=== PATIENT | female | born 1985 | race Caucasian/White ===

== ENCOUNTER 2017-02-12 10:18 | Emergency (ER) | payer SELFPAY ==
[2017-02-12 10:46] VITALS: BP 115/80
--- OUTSIDE RECORDS SUMMARY | 2017-02-12 11:13 | XMS REPORT | Continuity of Care Document ---
:1985 Author Organization [facility] ([facility]) Address [address] [place] [address] Phone [phone] Support Name Relationship Address Phone Unavailable Unavailable [address] [phone] [place] [address] Unavailable Unavailable [address] [place] [address] Care Team Providers Name Role Phone Unavailable Primary Care Provider Unavailable Source Comments This disclosure is being made pursuant to the Care Everywhere program, applicable federal and state laws, and may not contain all informaitonavailable regarding this patient.[facility] ([facility]) Active Allergies and Adverse Reactions Not on File Current Medications Not on file Active Problems Not on file Immunizations Name Dates Previously Given Next Due Hib, unspecified 12/23/1997 Pneumococcal, unspecified 03/14/1997 Social History Tobacco Use Types Packs/Day Years Used Date Never Assessed Plan of Care Health Maintenance Due Date Last Done Comments Hepatitis B Vaccine (1 of 3 - Primary Series) 1985 Tdap Vaccine 1996 Lipid Disorder Screening 2003 MMR Vaccine 2003 Td Vaccine 2003 Varicella Vaccine (1 of 2 - Adult - No Evidence of 2003 Immunity) Cervical Cancer Screening 2015 Influenza Vaccine: Seasonal (#1) 06/07/2016 Results from Last 3 Months Not on file
--- NOTE | 2017-02-12 11:17 | ERNOTE ---
ENT HPI Date of Service: 02/12/17 Presenting Symptoms: dental pain Time Seen by Provider: 02/12/17 11:05 Source: patient Exam Limitations: no limitations - Immun/Allergies/Home Medications Immunizations: IMMUNIZATION HX Immunizations Up to Date Yes History of Influenza Vaccine Yes Hx Pneumococcal Vaccination No Allergies/Adverse Reactions: Allergies Allergy/AdvReac Type Severity Reaction Status Date / Time Penicillins Allergy Verified 02/12/17 10:47 Home Medications: HOME MEDICATIONS metFORMIN HCL [Glucophage] 500 mg PO BIDWM 01/04/16 [Last Taken Unknown] Clindamycin HCl [Cleocin] 150 mg PO QID #56 capsule 02/12/17 [Last Taken Unknown ] Naproxen 500 mg PO BID PRN #28 tablet. 02/12/17 [Last Taken Unknown] - History of Present Illness Narrative: Dental pain front and on left side for 2 days, now moving up into the left side of face. Has dental appt in 2 days. no fever, chills, or sweats. left work today due to the severity of the pain. Severity: Present: moderate ENT Location: Present: dental Prearrival Treatment: Present: over the counter meds Modifying Factors - Improves: Reports: nothing Modifying Factors - Worsens: Reports: heat, cold, other - touching it Associated Symptoms - ENT: Reports: denies symptoms Prior Treament: Reports: similar symptoms before. Denies: currently on antibiotics Review of Systems - Review of Systems Constitutional: Present: no symptoms reported EYE: Present: no symptoms reported ENT: Present: See HPI Respiratory: Present: no symptoms reported Cardiology: Present: no symptoms reported Gastrointestinal/Abdominal: Present: no symptoms reported Genitourinary: Present: no symptoms reported Musculoskeletal: Present: no symptoms reported Skin: Present: no symptoms reported Neurological: Present: no symptoms reported Endocrine: Present: no symptoms reported Hematologic/Lymphatic: Present: no symptoms reported Psych: Present: no symptoms reported All Other Systems: All systems neg except as marked - Patient's Past Medical History Patient History - Medical: Diabetes Type 2 Patient History - Cardiac/Respiratory: No pertinent hx Patient History - Cancer: No Hx of Cancer Patient History - Surgical Procedures: Appendectomy, Cholecystectomy, T & A, Other Patient History - Other: None LMP (Calendar): 02/02/16 - Social History Living Situations: home Abuse History: No History of abuse Psych History: No pertinent hx Smoking Status: Current every day smoker Have you smoked in the past 12 months: Yes Do you dip or chew tobacco: No Alcohol Use: none Drug Use: none - Immunizations Immunizations Up to Date: Yes Hx Pneumococcal Vaccination: No History of Influenza Vaccine: Yes Physical Exam - Physical Exam General Appearance: Present: wd/wn, alert, no apparent distress Eye Exam: Normal inspection: bilateral, PERRL: bilateral, EOMI: bilateral Ears, Nose, Throat: Present: normal ENT inspection Neck: Present: normal inspection Respiratory: Present: no respiratory distress, normal breath sounds Cardiovascular/Chest: Present: regular rate, rhythm, no murmur Extremity Exam: Present: normal inspection, no edema Neurological Exam: Present: alert, oriented, normal mood/affect Skin Exam: Present: normal color, warm/dry ED Progress - Vital Signs Patient's Vital Signs:: I have reviewed the patient's vital signs. Vital Signs: Vital Signs 02/12/17 10:34 Temperature 36.7 C Pulse Rate 75 Respiratory 18 Rate Blood Pressure 115/80 O2 Sat by Pulse 98 Oximetry - Progress/Reassessment Chief Complaint: Dental Problem Departure Clinical Impression: Dental abscess - Departure Disposition: Home self-care Condition: Good Instructions: Dental Abscess, [id number], Form - Excuse from Work, School, or Physical Activity Additional Instructions: Followup with your dentist in 2 days. Prescriptions: Clindamycin HCl [Cleocin] 150 mg PO QID #56 capsule Naproxen 500 mg PO BID PRN #28 tablet.dr CHENG Reason: pain
== END 2017-02-12 11:30 | disposition home or self-care (01) ==
LOC: ER 10:18
DX: K04.7 Periapical abscess without sinus (principal); Z72.0 Tobacco use; E11.9 Type 2 diabetes mellitus without complications

== ENCOUNTER 2017-04-09 13:24 | Emergency (ER) | payer SELFPAY ==
--- OUTSIDE RECORDS SUMMARY | 2017-04-09 13:56 | XMS REPORT | Continuity of Care Document ---
:1985 Author Organization [facility] ([facility]) Address [address] [place] [address] Phone [phone] Support Name Relationship Address Phone Unavailable Unavailable [address] [phone] [place] [address] Unavailable Unavailable [address] [place] [address] Care Team Providers Name Role Phone Unavailable Primary Care Provider Unavailable Source Comments This disclosure is being made pursuant to the Care Everywhere program, applicable federal and state laws, and may not contain all informaitonavailable regarding this patient.[facility] ([facility]) Active Allergies and Adverse Reactions Not on [...]
[2017-04-09] MEDS ORDERED: MAG HYDROX/ALUMINUM HYD/SIMETH 30 ML UDC PO ONE (14:05)
[2017-04-09] MEDS ORDERED: SUCRALFATE 1 G/10 ML UDC PO ONE (14:05)
[2017-04-09] MEDS ORDERED: LIDOCAINE HCL 20 ML UDC PO ONE (14:05)
--- NOTE | 2017-04-09 14:35 | ERNOTE ---
Medical Problem HPI - Narrative Date of Service: 04/09/17 - General Chief Complaint: General Assessment Time Seen by Provider: 04/09/17 13:49 Source: patient Exam Limitations: no limitations - Immun/Allergies/Home Medications Immunizations: IMMUNIZATION HX Immunizations Up to Date Yes History of Influenza Vaccine Yes Hx Pneumococcal Vaccination No Allergies/Adverse Reactions: Allergies Penicillins Allergy (Verified 04/09/17 13:34) Home Medications: HOME MEDICATIONS metFORMIN HCL [Glucophage] 500 mg PO BIDWM 01/04/16 [Last Taken Unknown] Clarithromycin 500 mg PO BID #28 tablet 04/09/17 [Last Taken Unknown] Lansoprazole [Prevacid] 15 mg PO BID #28 capsule. 04/09/17 [Last Taken Unknown ] - History of Present History Narrative: Pt. comes in with c/o acid reflux and not being able to hold foods down for a week. Pt. states that two months ago she stated to feel burning in her mid chest that radiates to her throat and then she developed the vomiting as the burning worsened and the past 24 hours she has felt nauseated, dizzy, and weak. Review of Systems - Review of Systems Constitutional: Present: weakness, fatigue, malaise. Absent: recent illness, fever, chills EYE: Present: no symptoms reported ENT: Present: no symptoms reported Respiratory: Present: no symptoms reported. Absent: shortness of breath, cough , wheezing Cardiology: Present: no symptoms reported. Absent: chest pain, palpitations, edema Gastrointestinal/Abdominal: Present: nausea, vomiting, other - GERD. Absent: abdominal pain Genitourinary: Present: no symptoms reported Musculoskeletal: Present: no symptoms reported. Absent: back pain, joint pain Skin: Present: no symptoms reported Neurological: Present: dizziness/light-headedness. Absent: headache, numbness, tingling All Other Systems: All systems neg except as marked - Patient's Past Medical History Patient History - Medical: Diabetes Type 2 Patient History - Cardiac/Respiratory: No pertinent hx Patient History - Cancer: No Hx of Cancer Patient History - Surgical Procedures: Appendectomy, Cholecystectomy, T & A, Other Patient History - Other: None LMP (Calendar): 02/02/16 - Social History Living Situations: home Abuse History: No History of abuse Psych History: No pertinent hx Smoking Status: Current every day smoker Have you smoked in the past 12 months: Yes Alcohol Use: none Drug Use: none - Immunizations Immunizations Up to Date: Yes Hx Pneumococcal Vaccination: No History of Influenza Vaccine: Yes Physical Exam - Physical Exam General Appearance: Present: wd/wn, alert, no apparent distress Eye Exam: Normal inspection: bilateral, PERRL: bilateral, EOMI: bilateral Ears, Nose, Throat: Present: normal ENT inspection, normal pharynx Neck: Present: normal inspection, nontender. Absent: lymphadenopathy (R), lymphadenopathy (L) Respiratory: Present: no respiratory distress, normal breath sounds, no accessory muscle use, chest nontender, lungs clear Cardiovascular/Chest: Present: regular rate, rhythm, no murmur, normal peripheral pulses Gastrointestinal/Abdominal: Present: normal bowel sounds, nontender, nondistended, soft, no organomegaly Back Exam: Present: normal inspection, normal range of motion, no CVA tenderness , no vertebral tenderness Extremity Exam: Present: normal inspection, non-tender, normal range of motion, no edema Neurological Exam: Present: alert, oriented, normal mood/affect, no motor/ sensory deficits, 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 Absent: pallor, skin rash ED Progress - Results and Orders Patient's Lab Results:: I have reviewed the patient's lab results. - Vital Signs Patient's Vital Signs:: I have reviewed the patient's vital signs. Vital Signs: Vital Signs 04/09/17 13:28 Temperature 36.9 C Pulse Rate 102 H Respiratory 18 Rate Blood Pressure 114/61 O2 Sat by Pulse 100 Oximetry - EKG EKG: NSR EKG read: Reviewed by me EKG Comments: No acute. Interpreted by Dr De Jesus - Progress/Reassessment Chief Complaint: General Assessment Progress:: Improved Departure - Departure Clinical Impression: Gastritis Qualifiers: Gastritis type: other gastritis Chronicity: acute Gastritis bleeding: without bleeding Qualified Code(s): K29.00 - Acute gastritis without bleeding Disposition: Home self-care Condition: Good Instructions: Gastritis, Adult, [id number] Additional Instructions: Please take medications as directed and follow up with primary provider in 2-3 days. Prescriptions: Clarithromycin 500 mg PO BID #28 tablet Lansoprazole [Prevacid] 15 mg PO BID #28 capsule.
[2017-04-09 14:42] LABS: ALT 21 U/L (19-67); AST 13 U/L (0-48); Alkaline Phosphatase * 90 U/L (50-170); Anion Gap 14.3 mmol/L (6.8-13.8); BUN/Creatinine Ratio 13.3 (9.0-21.6); Bilirubin, Total 1.2 mg/dL (0.0-1.1); Blood Urea Nitrogen 11 mg/dL (3-23); Ca. Corrected For Albumin 8.7 mg/dL (8.4-10.2); Carbon Dioxide 27.7 mmol/L (24-32.6); Chloride 98 mmol/L (97-106); Glucose * 377 mg/dL (70-110); Sodium 136 mmol/L (132-142); Total Protein 7.7 gm/dL (6.2-8.2); Troponin I Less than 0.017 ng/ml (0.00-0.10)
[2017-04-09 15:17] LABS: Hematocrit 43.2 % (37.0-47.0); Mean Cell Volume 92.1 fl (78-100); Mean Platelet Volume 11.3 fl (6.0-9.5); Neutrophil # 7.8 K/mm3 (1.3-6.0); Platelet Count 386 K/mm3 (150-450); Red Blood Count 4.69 M/mm3 (4.2-5.4); Red Cell Distribution Width 12.4 % (11.5-14.0); White Blood Count 11.1 K/mm3 (4.0-10.5)
[2017-04-09 15:19] LABS: Neutrophil % 70.3 % (42-75.0)
[2017-04-09 15:32] VITALS: BP 112/62
== END 2017-04-09 15:31 | disposition home or self-care (01) ==
LOC: ER 13:24
DX: K29.00 Acute gastritis without bleeding (principal); F17.200 Nicotine dependence, unspecified, uncomplicated; E11.9 Type 2 diabetes mellitus without complications